=== PATIENT | female | born 1990 | race African-American/Black ===

== ENCOUNTER 2022-11-27 16:49 | Emergency (ER) | payer MEDICAID, OTHER ==
[~2022-11-27] VITALS: Ht 188 cm; Wt 101.0 kg
[~2022-11-27 16:49] MED LIST: ONDA-144 PO; PRENCAP61 PO
[2022-11-27] MEDS ORDERED: ACETAMINOPHEN 500 MG TAB PO ONE (17:30)
[2022-11-27 17:33] VITALS: BP 135/74
[2022-11-27] MEDS ORDERED: METH-1182 PO (17:45)
[2022-11-27] MEDS ORDERED: IBUP-1456 PO (17:45)
== END 2022-11-27 17:55 | disposition home or self-care (01) ==
LOC: ER 16:49
DX: S16.1XXA Strain of muscle, fascia and tendon at neck level, initial encounter (principal); S39.012A Strain of muscle, fascia and tendon of lower back, initial encounter; J45.909 Unspecified asthma, uncomplicated; E11.9 Type 2 diabetes mellitus without complications; V43.52XA Car driver injured in collision with other type car in traffic accident, initial encounter; Y93.89 Activity, other specified; Y92.89 Other specified places as the place of occurrence of the external cause; Y99.8 Other external cause status
CPT/HCPCS: 72040

== ENCOUNTER 2023-06-29 02:15 | Emergency (ER) | payer MEDICAID ==
[~2023-06-29] VITALS: Ht 188 cm; Wt 100.0 kg
[~2023-06-29 02:15] MED LIST changes: +IBUP-1456 PO; +METH-1182 PO
[2023-06-29 04:59] VITALS: BP 124/87; PULSE 93; RESP 20; TEMP 98; O2SAT 99
[2023-06-29] MEDS ORDERED: ONDANSETRON ODT 4 MG TAB PO ONE (05:15)
[2023-06-29] MEDS ORDERED: ACETAMINOPHEN 500 MG TAB PO ONE (05:15)
== END 2023-06-29 05:47 | disposition home or self-care (01) ==
LOC: ER 02:15
DX: R68.84 Jaw pain (principal); R10.84 Generalized abdominal pain; E11.9 Type 2 diabetes mellitus without complications; J45.909 Unspecified asthma, uncomplicated; Z79.1 Long term (current) use of non-steroidal anti-inflammatories (NSAID); Z79.899 Other long term (current) drug therapy; V47.6XXA Car passenger injured in collision with fixed or stationary object in traffic accident, initial encounter; Y93.89 Activity, other specified; Y92.410 Unspecified street and highway as the place of occurrence of the external cause; Y99.8 Other external cause status
CPT/HCPCS: 70450; 70486; 71250; 72125; 74176; 99284; Q0162